=== PATIENT | male | born 1965 | race Hispanic/Latino ===

== ENCOUNTER 2021-09-18 13:09 | Emergency (ER) | payer SELFPAY ==
[2021-09-18] MEDS ORDERED: HYDROcodone/ACETAMINOPHEN 5-325 MG TAB PO ONE (13:15)
[2021-09-18] MEDS ORDERED: PENICILLIN G BENZATHINE 1.2 MILLION UNIT/2 ML INJ IM ONE (13:15)
[2021-09-18] MEDS ORDERED: IBUPROFEN 800 MG TAB PO ONE (13:15)
--- NOTE | 2021-09-18 13:16 | Emergency Department Report ---
ED ENT HPI - General Chief complaint: Dental/Oral Stated complaint: TOOTH ABSCESS Time Seen by Provider: 09/18/21 13:15 Source: patient Mode of arrival: Ambulatory Limitations: No Limitations - History of Present Illness Initial comments: Patient is a 56-year-old male who comes to the ER with dental pain. He has known dental caries. He states he cannot afford to have them all pulled. He has right side mandibular pain with swelling of his mandibular area. There is no Ludewig's. No pharyngeal abscess. No trismus. He is taking p.o. Patient medicated with Benadryl and Motrin prior to arrival. MD complaint: tooth pain -: Gradual, days(s) Improves with: none Worsens with: none Context- Dental: history of dental caries Associated Symptoms: gum swelling, toothache. denies: fever, cough, pain with swallowing, sore throat, tinnitus, hearing loss, discharge from ear, rhinorrhea - Related Data Previous Rx's Medication Instructions Recorded Last Taken Type Amoxicillin [Trimox CAP] 500 mg PO TID #30 capsule 09/18/21 Unknown Rx Chlorhexidine Mouthwash [Peridex] 15 ml MM BID #1 bottle 09/18/21 Unknown Rx Allergies Allergy/AdvReac Type Severity Reaction Status Date / Time Sulfa (Sulfonamide Allergy Unknown Verified 09/18/21 13:11 Antibiotics) ED Dental HPI - General Chief complaint: Dental/Oral Stated complaint: TOOTH ABSCESS Time Seen by Provider: 09/18/21 13:15 Source: patient Mode of arrival: Ambulatory Limitations: No Limitations - Related Data Previous Rx's Medication Instructions Recorded Last Taken Type Amoxicillin [Trimox CAP] 500 mg PO TID #30 capsule 09/18/21 Unknown Rx Chlorhexidine Mouthwash [Peridex] 15 ml MM BID #1 bottle 09/18/21 Unknown Rx Allergies Allergy/AdvReac Type Severity Reaction Status Date / Time Sulfa (Sulfonamide Allergy Unknown Verified 09/18/21 13:11 Antibiotics) ED Review of Systems ROS: Stated complaint: TOOTH ABSCESS Other details as noted in HPI Comment: All other systems reviewed and negative ED Past Medical Hx - Past Medical History Previous Medical History?: No - Surgical History Past Surgical History?: No - Family History Family history: no significant - Social History Smoking Status: Current Every Day Smoker Substance Use Type: Alcohol - Medications Home Medications: Home Medications Medication Instructions Recorded Confirmed Last Taken Type Amoxicillin [Trimox CAP] 500 mg PO TID #30 capsule 09/18/21 Unknown Rx Chlorhexidine Mouthwash [Peridex] 15 ml MM BID #1 bottle 09/18/21 Unknown Rx ED Physical Exam - General Limitations: No Limitations General appearance: alert, in no apparent distress - Head Head exam: Present: atraumatic, normocephalic - Eye Eye exam: Present: normal appearance - ENT ENT exam: Present: mucous membranes moist - Expanded ENT Exam Expanded Mouth exam: Absent: drooling, trismus, muffled voice, tongue normal, tongue elevation Teeth exam: Present: dental caries 1 - Other - Neck Neck exam: Present: normal inspection - Respiratory Respiratory exam: Present: normal lung sounds bilaterally. Absent: respiratory distress - Cardiovascular Cardiovascular Exam: Present: regular rate, normal rhythm. Absent: systolic murmur, diastolic murmur, rubs, gallop - GI/Abdominal GI/Abdominal exam: Present: soft, normal bowel sounds - Rectal Rectal exam: Present: deferred - Extremities Exam Extremities exam: Present: normal inspection - Back Exam Back exam: Present: normal inspection - Neurological Exam Neurological exam: Present: alert, oriented X3 - Psychiatric Psychiatric exam: Present: normal affect, normal mood - Skin Skin exam: Present: warm, dry, intact, normal color. Absent: rash ED Course Vital Signs 09/18/21 09/18/21 13:12 13:51 Temperature 98.5 F 98.4 F Pulse Rate 102 H 77 Respiratory 20 20 Rate Blood Pressure 129/107 Blood Pressure 142/96 [Left] O2 Sat by Pulse 96 100 Oximetry ED Medical Decision Making - Medical Decision Making Patient medicated with Bicillin IM, [place] and Motrin. Patient is taking p.o. No trismus. No abscess. No Ludewig's Vital Signs 09/18/21 13:12 Temperature 98.5 F Pulse Rate 102 H Respiratory 20 Rate Blood Pressure 129/107 O2 Sat by Pulse 96 Oximetry Patient's blood pressure noted to be elevated on arrival. He denies chest pain or shortness of breath. He denies history of hypertension. He states that he is just in pain. He has been instructed to monitor his blood pressure and follow-up with primary care if it remains persistently elevated. Patient being discharged home with discharge plan of care including diet, medications, activity and follow-up. He verbalizes understanding. - Differential Diagnosis Dental pain Critical care attestation.: If time is entered above; I have spent that time in minutes in the direct care of this critically ill patient, excluding procedure time. ED Disposition Clinical Impression: Dental caries, Elevated blood pressure reading Disposition: HOME / SELF CARE / HOMELESS Is pt being admited?: No Does the pt Need Aspirin: No Condition: Stable Instructions: Dental Abscess Additional Instructions: Medications as ordered today. Motrin or Tylenol for pain. Antibiotics as ordered. Follow-up with dentist for extraction. I have given you referrals below. You can also call the [facility] dental school. What we are doing today is only temporarily fixing the problem Monitor your blood pressure and if it remains elevated follow-up with primary care. I have given you referral to primary below. It could be elevated because you are in pain but you need to keep a watch on it. Prescriptions: Chlorhexidine Mouthwash [Peridex] 15 ml MM BID #1 bottle Amoxicillin [Trimox CAP] 500 mg PO TID #30 capsule Referrals: [facility] [Outside] - 3-5 Days [facility] [Outside] - 3-5 Days LESLEY MALHOTRA MD [Staff Physician] - 3-5 Days Time of Disposition: 13:25
[2021-09-18 14:07] VITALS: BP 142/96
== END 2021-09-18 13:54 | disposition home or self-care (01) ==
LOC: ED 13:09
DX: K02.9 Dental caries, unspecified (principal); R03.0 Elevated blood-pressure reading, without diagnosis of hypertension; F17.200 Nicotine dependence, unspecified, uncomplicated; Z72.89 Other problems related to lifestyle; Z88.2 Allergy status to sulfonamides; Z79.899 Other long term (current) drug therapy
CPT/HCPCS: 96372; 99282; J0561

== ENCOUNTER 2021-12-05 08:22 | Emergency (ER) | payer SELFPAY ==
[2021-12-05 08:54] VITALS: BP 146/87
--- NOTE | 2021-12-05 09:46 | XRay Report ---
RIGHT HIP 2 VIEWS INDICATION / CLINICAL INFORMATION: R hip pain COMPARISON: None available. FINDINGS: BONES and JOINT(S): No acute fracture or subluxation. No significant arthritis. SOFT TISSUES: No significant abnormality. ADDITIONAL FINDINGS: None. IMPRESSION: 1. No acute findings. Signer Name: Jake Delgado MD Signed: 12/05/2021 9:41 AM Workstation Name: [id number]
--- NOTE | 2021-12-05 09:46 | XRay Report ---
SACRUM/COCCYX 3 VIEWS INDICATION / CLINICAL INFORMATION: back pain COMPARISON: None available. FINDINGS: BONES and JOINT(S): No acute fracture or subluxation. No significant arthritis. SOFT TISSUES: No significant abnormality. ADDITIONAL FINDINGS: None. IMPRESSION: 1. No acute findings. Signer Name: Jake Delgado MD Signed: 12/05/2021 9:42 AM Workstation Name: [id number]
[2021-12-05] MEDS ORDERED: oxyCODONE /ACETAMINOPHEN 5-325MG TAB PO ONE (11:31)
[2021-12-05] MEDS ORDERED: KETOROLAC 60 MG/2 ML INJ IM ONE (11:31)
[2021-12-05] MEDS ORDERED: dexAMETHasone 4 MG/ML VIAL IM ONE (11:31)
--- NOTE | 2021-12-05 11:32 | Emergency Department Report ---
ED General Adult HPI - General Chief complaint: Pain General Stated complaint: HIP/LOWER BACK PAIN Time Seen by Provider: 12/05/21 11:22 Source: patient Mode of arrival: Ambulatory Limitations: No Limitations - History of Present Illness Initial comments: 56-year-old male with no significant past medical history reports to the ER with complaints of right-sided low back pain with sciatica. Patient denies any recent injury to his lower back. Patient reports stepping off a curb yesterday and waking up this morning with severe back pain. Denies fall. Patient reports managing his back pain for about 20 years with [id number] medicine such as Tylenol and Motrin. Never unable to decrease his pain with OTC medications. Patient denies /GI symptoms. No numbness or paresthesia noted in the pelvic area. Patient is ambulatory still. Patient does report tingling in and right leg that radiates down to the foot. No other acute symptoms reported. - Related Data Previous Rx's Medication Instructions Recorded Last Taken Type Amoxicillin [Trimox CAP] 500 mg PO TID #30 capsule 09/18/21 Unknown Rx Chlorhexidine Mouthwash [Peridex] 15 ml MM BID #1 bottle 09/18/21 Unknown Rx Acetaminophen/Codeine [Tylenol 1 tab PO Q6H PRN 3 Days #10 tab 12/05/21 Unknown Rx /Codeine # 3 tab] Ibuprofen [Motrin] 600 mg PO Q8H PRN 7 Days #21 tablet 12/05/21 Unknown Rx methOCARBAMOL [Robaxin TAB] 500 mg PO Q8HR PRN 7 Days #21 tab 12/05/21 Unknown Rx predniSONE [Deltasone] 40 mg PO QDAY 5 Days #10 tab 12/05/21 Unknown Rx Allergies Allergy/AdvReac Type Severity Reaction Status Date / Time Sulfa (Sulfonamide Allergy Unknown Verified 09/18/21 13:11 Antibiotics) ED Review of Systems ROS: Stated complaint: HIP/LOWER BACK PAIN Other details as noted in HPI Comment: All other systems reviewed and negative Musculoskeletal: back pain ED Past Medical Hx - Past Medical History Previous Medical History?: No - Social History Smoking Status: Current Every Day Smoker Substance Use Type: Alcohol - Medications Home Medications: Home Medications Medication Instructions Recorded Confirmed Last Taken Type Amoxicillin [Trimox CAP] 500 mg PO TID #30 capsule 09/18/21 Unknown Rx Chlorhexidine Mouthwash [Peridex] 15 ml MM BID #1 bottle 09/18/21 Unknown Rx Acetaminophen/Codeine [Tylenol 1 tab PO Q6H PRN 3 Days #10 tab 12/05/21 Unknown Rx /Codeine # 3 tab] Ibuprofen [Motrin] 600 mg PO Q8H PRN 7 Days #21 tablet 12/05/21 Unknown Rx methOCARBAMOL [Robaxin TAB] 500 mg PO Q8HR PRN 7 Days #21 tab 12/05/21 Unknown Rx predniSONE [Deltasone] 40 mg PO QDAY 5 Days #10 tab 12/05/21 Unknown Rx ED Physical Exam - General Limitations: No Limitations General appearance: alert, in no apparent distress - Head Head exam: Present: atraumatic, normocephalic - Eye Eye exam: Present: normal appearance - ENT ENT exam: Present: mucous membranes moist - Neck Neck exam: Present: normal inspection - Respiratory Respiratory exam: Present: normal lung sounds bilaterally. Absent: respiratory distress - Cardiovascular Cardiovascular Exam: Present: regular rate, normal rhythm. Absent: systolic murmur, diastolic murmur, rubs, gallop - GI/Abdominal GI/Abdominal exam: Present: soft, normal bowel sounds - Rectal Rectal exam: Present: deferred - Extremities Exam Extremities exam: Present: normal inspection - Back Exam Back exam: Present: normal inspection, tenderness. Absent: paraspinal tenderness, vertebral tenderness - Neurological Exam Neurological exam: Present: alert, oriented X3 - Psychiatric Psychiatric exam: Present: normal affect, normal mood - Skin Skin exam: Present: warm, dry, intact, normal color. Absent: rash ED Course Vital Signs 12/05/21 08:51 Temperature 98.4 F Pulse Rate 100 H Respiratory 16 Rate Blood Pressure 146/87 [Left] O2 Sat by Pulse 100 Oximetry ED Medical Decision Making - Medical Decision Making 56-year-old male with chronic right-sided back pain that is managed with OTC medication. Reports no new injuries. Denies GI symptoms. Right lower back tenderness noted decreased range and back mobility due to pain. Negative straight leg test. No imaging is needed at this time. Pain is due to sciatic nerve. Based on patient report of pain and tingling running down right leg. No spinal process tenderness noted. No bulging noted in spinal column. Patient giving pain medications here in ER that include Percocet, Robaxin, Toradol, Decadron. Patient stable for discharge will follow-up with primary care here in [facility] or back home in [facility] Patient will have pain medicine prescriptions at time of discharge. Patient agrees with plan of care and verbalizes understanding. Vital Signs 12/05/21 08:51 Temperature 98.4 F Pulse Rate 100 H Respiratory 16 Rate Blood Pressure 146/87 [Left] O2 Sat by Pulse 100 Oximetry Critical care attestation.: If time is entered above; I have spent that time in minutes in the direct care of this critically ill patient, excluding procedure time. ED Disposition Clinical Impression: Back pain, chronic Qualifiers: Back pain location: low back pain Back pain laterality: right Sciatica presence: with sciatica Sciatica laterality: sciatica of right side Qualified Code(s): M54.41 - Lumbago with sciatica, right side Disposition: HOME / SELF CARE / HOMELESS Is pt being admited?: No Condition: Stable Instructions: Radicular Pain, Acute Back Pain, Adult, Pain Medicine Instructions Prescriptions: predniSONE [Deltasone] 40 mg PO QDAY 5 Days #10 tab Ibuprofen [Motrin] 600 mg PO Q8H PRN 7 Days #21 tablet PRN Reason: Pain methOCARBAMOL [Robaxin TAB] 500 mg PO Q8HR PRN 7 Days #21 tab PRN Reason: Muscle Spasm Acetaminophen/Codeine [Tylenol /Codeine # 3 tab] 1 tab PO Q6H PRN 3 Days #10 tab PRN Reason: Pain , Severe (7-10) Referrals: PRIMARY MD ANAMARIA [Primary Care Provider] - 3-5 Days BRUCE MOSQUERA MD [Referring] - 3-5 Days ZEN MOSQUERA MD [Staff Physician] - 3-5 Days Time of Disposition: 12:38
== END 2021-12-05 12:59 | disposition home or self-care (01) ==
LOC: ED 08:22
DX: M54.41 Lumbago with sciatica, right side (principal); F17.290 Nicotine dependence, other tobacco product, uncomplicated; Z88.2 Allergy status to sulfonamides
CPT/HCPCS: 72220; 73502; 96372; 99283; J1100; J1885